=== PATIENT | female | born 1990 | race American Indian/Alaskan Native ===

== ENCOUNTER 2016-10-29 20:39 | Outpatient (CLI) | payer MEDICAID ==
[2016-10-29 20:53] VITALS: BP 129/71
[2016-10-29] MEDS ORDERED: VISTARIL PO ONE (21:27)
== END 2016-10-29 21:35 | disposition home or self-care (01) ==
LOC: TRG 20:39
PROVIDERS: ATTEND Obstetrics & Gynecology
DX: O47.1 False labor at or after 37 completed weeks of gestation (principal); Z3A.39 39 weeks gestation of pregnancy
CPT/HCPCS: 59025; Q0177